=== PATIENT | male | born 1995 ===

== ENCOUNTER 2017-11-08 12:55 | Emergency (ER) | payer SELFPAY ==
[2017-11-08 13:07] VITALS: BP 124/86
== END 2017-11-08 13:04 | disposition left against medical advice (07) ==
LOC: ED 12:55
DX: R07.9 Chest pain, unspecified (principal); M54.9 Dorsalgia, unspecified; Z53.21 Procedure and treatment not carried out due to patient leaving prior to being seen by health care provider; V89.2XXA Person injured in unspecified motor-vehicle accident, traffic, initial encounter; Y93.89 Activity, other specified; Y99.8 Other external cause status; Y92.410 Unspecified street and highway as the place of occurrence of the external cause
CPT/HCPCS: 93005; 93010